=== PATIENT | female | born 1965 | race Caucasian/White ===

== ENCOUNTER 2023-05-31 20:09 | Emergency (ER) | payer OTHER, SELFPAY ==
[2023-05-31 20:25] VITALS: BP 186/100; PULSE 78; RESP 18; TEMP 36.9; O2SAT 98; BMI 28.0
--- NOTE | 2023-05-31 21:27 | ED.GENADULT ---
HPI - General Adult General Chief complaint: General Medical Stated complaint: abd pain work inj Time Seen by Provider: 05/31/23 21:13 History of Present Illness HPI narrative: Patient is a 57-year-old female status post working on the [employer]. Patient had 6 cases a Gatorade and 7 cases of OJ fell on her. The weight of the object hit her in the shoulder hit her in the hand hit her in the abdomen there was no loss of consciousness. Patient was sent to the emergency department for further evaluation. No nausea no vomiting. The pain is localized. Related Data Allergies Allergy/AdvReac Type Severity Reaction Status Date / Time oxycodone Allergy Anaphylaxis Verified 05/31/23 20:24 Review of Systems Review of Systems: Positive pain to the abdomen. Positive pain to bilateral hands. Positive pain to bilatera PMFSH Past Medical History Attestation statement: The following information was validated with the patient. Source: unable to obtain Onset Date is defined in the Problem List Problems that require an onset date and time if occurred within 24 hrs of arrival to the ED Aortic Dissection and Rupture; Neurologic impairment; Cardiopulmonary Arrest; Endotracheal Intubation; Insertion or Replacement of Mechanical Circulatory Assist Device Social History Social History Advance Directives: No Advance Directives Information Provided: No Physical Exam ED Vital Signs: Vital Signs - 24 hr 05/31/23 20:25 Temperature 98.4 F Pulse Rate 78 Respiratory Rate 18 Blood Pressure 186/100 H Pulse Oximetry 98 Oxygen Delivery Method Room Air BMI result Body Mass Index 28.0 Appearance: Alert. Oriented X3. No acute distress. Eyes: Pupils equal, round and reactive to light. ENT: Pharynx normal. Neck: Normal inspection. Neck supple. No lymph nodes noted. No crepitus CVS: Normal heart rate and rhythm. Pulses normal. Normal S1 and S2 Respiratory: No respiratory distress. Breath sounds normal. No Wheezing. No rales Abdomen: diffuse tenderness there is area of contusion in the right upper quadrant. Again no rebound no guarding. Skin: Skin warm and dry. Normal skin color. Normal skin turgor. Extremities: No lower extremity edema. Neurovascular intact to all extremities. No Lacerations. No Rash. Positive contusion to bilateral tib-fib area. Approximately 3 cm x 3 cm in size bilaterally. There is good distal pulses sensation intact ambulate with normal gait . Positive contusion to bilateral hand near the hypothenar area. Range of motion in the hands are intact. Capillary refill less than 2 seconds. Sensation over the median radial ulnar nerve intact. Skin intact. Neuro: Oriented X 3. No motor deficit. No sensory deficit. Moving all extermities. No slurred speech Medical Decision Making Medical Decision Making MDM Narrative: patient is status post a Pallet of juices under aid falling on her. X-ray of the shoulder hands and legs were done. They were all grossly negative by my interpretation. Review radiology's reading. CT scan of the abdomen pelvis was done. There was no evidence of solid organ injury. Patient well appearing will discharge patient home. In stable condition. Differential Diagnosis Differential Diagnoses: The differential diagnosis associated with the presentation includes Fracture intra-abdominal injury liver laceration splenic laceration head injury Admission/Observation Consideration of admission/observation: Escalation of care including admission/observation considered no need as patient's symptoms Independent Interpretation I performed an independent interpretation of an: Plain X-Ray ( x-ray of the legs bilaterally were all negative. X-ray of the hands bilaterally were negative for fracture) and CT Scan ( CT scan abdomen pelvis grossly negative for any acute evidence of obstruction abscess perforation no solid organ injury) Radiology Impression Discussion of test interpretation with radiology: I have reviewed the radiologist's reading. Prescription Management I considered prescription management with: Pain Medication patient will take Motrin on an outpatient basis. Patient does not any narcotics. Discharge Plan Discharge Clinical Impression: Contusion Patient Disposition: Home, Self-Care Instructions: Hematoma (ED), Contusion in Adults (ED) Referrals: Physician,None [Primary Care Provider] - 06/02/23 Stand Alone Forms: Work/School Release
[2023-05-31 23:02] VITALS: BP 123/65; PULSE 67; RESP 18; O2SAT 97
--- NOTE | 2023-05-31 23:07 | PC.NURSE ---
Rn to bedside for primary introductions. Pt requesting medication for 8/10 pain at this time. RN made MD aware and new verbal orders obtained for Ibuprofen 400mg PO.
== END 2023-05-31 23:33 | disposition home or self-care (01) ==
PROVIDERS: Emergency Provider Emergency Medicine Emergency Medical Services
DX: S49.90XA Unspecified injury of shoulder and upper arm, unspecified arm, initial encounter (principal); S30.1XXA Contusion of abdominal wall, initial encounter; W20.8XXA Other cause of strike by thrown, projected or falling object, initial encounter; Y93.89 Activity, other specified; Y92.89 Other specified places as the place of occurrence of the external cause; Y99.0 Civilian activity done for income or pay; M25.532 Pain in left wrist; M25.531 Pain in right wrist
CPT/HCPCS: 73030; 73110; 73130; 73590; 74176; 99284